=== PATIENT | male | born 1935 | race Caucasian/White ===

== ENCOUNTER 2018-07-27 20:40 | Inpatient (IN) | payer MEDICARE ==
[~2018-07-27] VITALS: Ht 175.3 cm; Wt 147.9 kg
[~2018-07-27 20:40] MED LIST: (None)250 MG OR; ALLOPURINOL100 MG OR; COUMADIN1 MG PO; COUMADIN4 MG OR; COUMADIN4 MG PO; DIAMOX500 MG OR; DIGOXIN0.25 MG OR; FLAGYL500 MG OR; FLAGYL500 MG PO; GLIPIZIDE ER2.5 MG OR; GLIPIZIDE XL2.5 MG OR; KLOR-CON M2020 MEQ PO; LANOXIN0.25 MG OR; LASIX 80 MG TAB80 MG OR; LEVOTHYROXIN25 MCG PO; LISINOPRIL2.5 MG PO; LISINOPRIL20 MG OR; LOPRESSOR50 MG OR; LORTAB 5/3255 MG PO; METFORMIN1000 MG OR; METOPROL TAR25 MG PO; POTASSIUM25 MEQ OR; PROTONIX40 MG PO; SYNTHROID50 MCG OR; WARFARIN4 MG OR; WARFARIN6 MG OR
[2018-07-27 21:20] LABS: HEMOGLOBIN 15.8 g/dl (14.0-18.0); IMMATURE GRANULOCYTES 0.3 % (0.0-5.0); MEAN CORPUSCULAR HGB 30.2 pG CALC (26.0-32.0); MEAN CORPUSCULAR HGB CONC 30.7 g/L CALC (32.0-36.0); NEUT# 4.52 thou/uL (1.82-7.42); RED BLOOD COUNT 5.24 mill/uL (4.70-6.10); RED CELL DISTRI WIDTH 17.2 % (11.5-15.5)
[2018-07-27] MEDS ORDERED: LEVOTHYROXIN25 MC1 PO (21:26)
[2018-07-27 21:27] LABS: HEMATOCRIT 51.5 % (39.0-50.0); MEAN CELL VOLUME 98.3 fL CALC (80.0-100.0)
[2018-07-27 21:39] LABS: ALBUMIN 3.7 g/dL (3.2-5.0); ALKALINE PHOSPHATASE 90 u/l (38-126); ANION GAP 14 (6-22 (CALC)); BILIRUBIN, TOTAL 0.7 mg/dL (0.0-1.4); BUN 22 mg/dL (8-23); BUN/CREATININE RATIO 21 (12-20 (CALC)); CARBON DIOXIDE 33 mmol/l (22-30); CHLORIDE 98 mmol/l (95-108); GFR > 60 ML/MIN (>=60 (CALC)); GFR FOR AFR.AMER. > 60 ML/MIN (>=60 (CALC)); POTASSIUM 4.3 mmol/l (3.5-5.1); SGOT/AST 23 u/l (19-48); SODIUM 140 mmol/l (137-146); TOTAL PROTEIN 6.7 g/dL (6.3-8.2)
[2018-07-27 22:32] LABS: URINE BILIRUBIN - DIPSTICK NEGATIVE (NEGATIVE); URINE BLOOD DIPSTICK NEGATIVE (NEGATIVE); URINE COLOR YELLOW; URINE GLUCOSE - DIPSTICK NEGATIVE (NEGATIVE); URINE KETONE NEGATIVE (NEGATIVE); URINE LEUK ESTERASE NEGATIVE (NEGATIVE); URINE NITRITE - DIPSTICK NEGATIVE (Negative); URINE PH 5.5 (4.5-8.0); URINE PROTEIN - DIPSTICK TRACE mg/dL (NEG-TRACE); URINE SPECIFIC GRAVITY 1.025; URINE UROBILINOGEN - DIPSTICK 0.2 E.U./dL (0.2)
[2018-07-27 22:41] LABS: URINE CLARITY CLEAR
[2018-07-28 00:10] VITALS: BP 138/94
[2018-07-28 04:00] VITALS: BP 126/79
[2018-07-28 08:05] VITALS: BP 149/98
[2018-07-28 15:54] VITALS: BP 113/67
[2018-07-28 19:00] VITALS: BP 111/67
[2018-07-29 04:00] VITALS: BP 121/78
[2018-07-29 06:06] LABS: ANION GAP 11 (6-22 (CALC)); BUN 21 mg/dL (8-23); BUN/CREATININE RATIO 21 (12-20 (CALC)); CARBON DIOXIDE 37 mmol/l (22-30); CHLORIDE 96 mmol/l (95-108); GFR > 60 ML/MIN (>=60 (CALC)); GFR FOR AFR.AMER. > 60 ML/MIN (>=60 (CALC)); HEMATOCRIT 50.5 % (39.0-50.0); HEMOGLOBIN 15.2 g/dl (14.0-18.0); MEAN CORPUSCULAR HGB 30.1 pG CALC (26.0-32.0); MEAN CORPUSCULAR HGB CONC 30.1 g/L CALC (32.0-36.0); POTASSIUM 3.8 mmol/l (3.5-5.1); RED BLOOD COUNT 5.05 mill/uL (4.70-6.10); RED CELL DISTRI WIDTH 17.2 % (11.5-15.5); SODIUM 141 mmol/l (137-146)
[2018-07-29 07:27] VITALS: BP 128/86
[2018-07-29 16:00] VITALS: BP 124/84
[2018-07-29 19:00] VITALS: BP 115/69
[2018-07-30 04:25] VITALS: BP 121/74
[2018-07-30 05:47] LABS: HEMATOCRIT 51.5 % (39.0-50.0); HEMOGLOBIN 15.5 g/dl (14.0-18.0); MEAN CELL VOLUME 100.4 fL CALC (80.0-100.0); MEAN CORPUSCULAR HGB 30.2 pG CALC (26.0-32.0); MEAN CORPUSCULAR HGB CONC 30.1 g/L CALC (32.0-36.0); RED BLOOD COUNT 5.13 mill/uL (4.70-6.10); RED CELL DISTRI WIDTH 16.9 % (11.5-15.5)
[2018-07-30 06:17] LABS: ANION GAP 12 (6-22 (CALC)); BUN 19 mg/dL (8-23); BUN/CREATININE RATIO 20 (12-20 (CALC)); CHLORIDE 93 mmol/l (95-108); GFR > 60 ML/MIN (>=60 (CALC)); GFR FOR AFR.AMER. > 60 ML/MIN (>=60 (CALC)); MAGNESIUM 1.7 mg/dL (1.6-2.3); POTASSIUM 3.6 mmol/l (3.5-5.1); SODIUM 141 mmol/l (137-146)
[2018-07-30 06:19] LABS: CARBON DIOXIDE 40 mmol/l (22-30)
[2018-07-30 08:38] VITALS: BP 116/69
[2018-07-30 15:48] VITALS: BP 110/41
[2018-07-30 19:56] VITALS: BP 118/51
[2018-07-31] VITALS: BP 114/72
[2018-07-31 04:57] VITALS: BP 127/68
[2018-07-31 05:30] LABS: HEMATOCRIT 47.8 % (39.0-50.0); HEMOGLOBIN 14.6 g/dl (14.0-18.0); IMMATURE GRANULOCYTES 0.4 % (0.0-5.0); MEAN CELL VOLUME 98.6 fL CALC (80.0-100.0); MEAN CORPUSCULAR HGB 30.1 pG CALC (26.0-32.0); MEAN CORPUSCULAR HGB CONC 30.5 g/L CALC (32.0-36.0); NEUT# 5.56 thou/uL (1.82-7.42); RED BLOOD COUNT 4.85 mill/uL (4.70-6.10); RED CELL DISTRI WIDTH 16.4 % (11.5-15.5)
[2018-07-31 05:42] LABS: ALBUMIN 3.3 g/dL (3.2-5.0); ALKALINE PHOSPHATASE 68 u/l (38-126); ANION GAP 13 (6-22 (CALC)); BILIRUBIN, TOTAL 1.1 mg/dL (0.0-1.4); BUN 17 mg/dL (8-23); BUN/CREATININE RATIO 19 (12-20 (CALC)); CARBON DIOXIDE 39 mmol/l (22-30); CHLORIDE 92 mmol/l (95-108); CREATININE 0.9 mg/dL (0.7-1.3); GFR > 60 ML/MIN (>=60 (CALC)); GFR FOR AFR.AMER. > 60 ML/MIN (>=60 (CALC)); MAGNESIUM 1.6 mg/dL (1.6-2.3); POTASSIUM 3.2 mmol/l (3.5-5.1); SGOT/AST 23 u/l (19-48); SODIUM 141 mmol/l (137-146)
[2018-07-31 08:16] VITALS: BP 128/60
[2018-07-31 15:05] VITALS: BP 125/52
[2018-07-31 19:25] VITALS: BP 130/61
[2018-08-01 04:00] VITALS: BP 121/77
[2018-08-01 05:45] LABS: HEMOGLOBIN 14.5 g/dl (14.0-18.0); IMMATURE GRANULOCYTES 0.3 % (0.0-5.0); MEAN CELL VOLUME 98.8 fL CALC (80.0-100.0); MEAN CORPUSCULAR HGB 29.8 pG CALC (26.0-32.0); MEAN CORPUSCULAR HGB CONC 30.2 g/L CALC (32.0-36.0); NEUT# 4.79 thou/uL (1.82-7.42); RED BLOOD COUNT 4.86 mill/uL (4.70-6.10); RED CELL DISTRI WIDTH 16.1 % (11.5-15.5)
[2018-08-01 05:57] LABS: ALBUMIN 3.2 g/dL (3.2-5.0); ALKALINE PHOSPHATASE 60 u/l (38-126); BILIRUBIN, TOTAL 1.1 mg/dL (0.0-1.4); BUN 18 mg/dL (8-23); BUN/CREATININE RATIO 21 (12-20 (CALC)); CHLORIDE 90 mmol/l (95-108); CREATININE 0.9 mg/dL (0.7-1.3); GFR > 60 ML/MIN (>=60 (CALC)); GFR FOR AFR.AMER. > 60 ML/MIN (>=60 (CALC)); MAGNESIUM 1.5 mg/dL (1.6-2.3); POTASSIUM 2.9 mmol/l (3.5-5.1); SGOT/AST 25 u/l (19-48); SODIUM 141 mmol/l (137-146)
[2018-08-01 06:04] LABS: ANION GAP 12 (6-22 (CALC))
[2018-08-01 06:19] LABS: CARBON DIOXIDE 42 mmol/l (22-30)
[2018-08-01 09:25] VITALS: BP 123/52
[2018-08-01 15:43] VITALS: BP 132/75
[2018-08-01 19:15] VITALS: BP 120/72
[2018-08-02] VITALS (13 sets, daily range): BP systolic 108–153; BP diastolic 58–79
[2018-08-02 05:35] LABS: HEMATOCRIT 47.8 % (39.0-50.0); HEMOGLOBIN 14.5 g/dl (14.0-18.0); IMMATURE GRANULOCYTES 0.2 % (0.0-5.0); MEAN CELL VOLUME 99.2 fL CALC (80.0-100.0); MEAN CORPUSCULAR HGB 30.1 pG CALC (26.0-32.0); MEAN CORPUSCULAR HGB CONC 30.3 g/L CALC (32.0-36.0); NEUT# 4.63 thou/uL (1.82-7.42); RED BLOOD COUNT 4.82 mill/uL (4.70-6.10); RED CELL DISTRI WIDTH 15.9 % (11.5-15.5)
[2018-08-02 05:54] LABS: ALBUMIN 3.1 g/dL (3.2-5.0); ALKALINE PHOSPHATASE 55 u/l (38-126); BUN 18 mg/dL (8-23); BUN/CREATININE RATIO 21 (12-20 (CALC)); CHLORIDE 90 mmol/l (95-108); CREATININE 0.9 mg/dL (0.7-1.3); GFR > 60 ML/MIN (>=60 (CALC)); GFR FOR AFR.AMER. > 60 ML/MIN (>=60 (CALC)); MAGNESIUM 1.6 mg/dL (1.6-2.3); SGOT/AST 29 u/l (19-48); SODIUM 142 mmol/l (137-146); TOTAL PROTEIN 5.9 g/dL (6.3-8.2)
[2018-08-02 06:01] LABS: ANION GAP 13 (6-22 (CALC))
[2018-08-02 06:08] LABS: CARBON DIOXIDE 42 mmol/l (22-30)
[2018-08-02] MEDS ORDERED: GLIPIZIDE XL2.5 MG OR (14:59)
[2018-08-02] MEDS ORDERED: BUMETANIDE2 MG PO (15:00)
[2018-08-02 23:43] LABS: BUN 16 mg/dL (8-23); BUN/CREATININE RATIO 18 (12-20 (CALC)); CHLORIDE 86 mmol/l (95-108); CREATININE 0.9 mg/dL (0.7-1.3); GFR > 60 ML/MIN (>=60 (CALC)); GFR FOR AFR.AMER. > 60 ML/MIN (>=60 (CALC)); MAGNESIUM 1.6 mg/dL (1.6-2.3); SODIUM 140 mmol/l (137-146)
[2018-08-02 23:50] LABS: ANION GAP 13 (6-22 (CALC))
[2018-08-02 23:52] LABS: CARBON DIOXIDE 44 mmol/l (22-30)
[2018-08-03] VITALS (9 sets, daily range): BP systolic 111–131; BP diastolic 55–75
[2018-08-03 03:35] LABS: HEMATOCRIT 48.8 % (39.0-50.0); IMMATURE GRANULOCYTES 0.9 % (0.0-5.0); MEAN CELL VOLUME 97.4 fL CALC (80.0-100.0); MEAN CORPUSCULAR HGB 29.9 pG CALC (26.0-32.0); MEAN CORPUSCULAR HGB CONC 30.7 g/L CALC (32.0-36.0); NEUT# 4.56 thou/uL (1.82-7.42); RED BLOOD COUNT 5.01 mill/uL (4.70-6.10); RED CELL DISTRI WIDTH 15.8 % (11.5-15.5)
[2018-08-03 03:54] LABS: ALBUMIN 3.3 g/dL (3.2-5.0); ALKALINE PHOSPHATASE 55 u/l (38-126); BILIRUBIN, TOTAL 1.3 mg/dL (0.0-1.4); BUN 16 mg/dL (8-23); BUN/CREATININE RATIO 19 (12-20 (CALC)); CHLORIDE 87 mmol/l (95-108); CREATININE 0.9 mg/dL (0.7-1.3); GFR > 60 ML/MIN (>=60 (CALC)); GFR FOR AFR.AMER. > 60 ML/MIN (>=60 (CALC)); MAGNESIUM 1.6 mg/dL (1.6-2.3); SGOT/AST 37 u/l (19-48); SODIUM 141 mmol/l (137-146); TOTAL PROTEIN 6.2 g/dL (6.3-8.2)
[2018-08-03 04:00] LABS: ANION GAP 13 (6-22 (CALC))
[2018-08-03 04:06] LABS: CARBON DIOXIDE 44 mmol/l (22-30)
== END 2018-08-03 11:45 | DRG 291 ==
LOC: ED 20:40 → ED-I 23:00 → ED 23:35 → MS2 23:36 → ICU 23:36
PROVIDERS: Family Medicine; Internal Medicine Nephrology; ADMIT Internal Medicine; ATTEND Internal Medicine
PROC: 5A09357 Assistance with Respiratory Ventilation, Less than 24 Consecutive Hours, Continuous Positive Airway Pressure (ICD-10-PCS; principal; 2018-08-02)
PROC: 0T9B70Z Drainage of Bladder with Drainage Device, Via Natural or Artificial Opening (ICD-10-PCS; 2018-08-02)
DX: I11.0 Hypertensive heart disease with heart failure (principal); J96.02 Acute respiratory failure with hypercapnia; J96.01 Acute respiratory failure with hypoxia; K57.20 Diverticulitis of large intestine with perforation and abscess without bleeding; R18.8 Other ascites; I50.33 Acute on chronic diastolic (congestive) heart failure; R33.9 Retention of urine, unspecified; F41.9 Anxiety disorder, unspecified; E11.9 Type 2 diabetes mellitus without complications; I48.91 Unspecified atrial fibrillation; E03.9 Hypothyroidism, unspecified; K80.20 Calculus of gallbladder without cholecystitis without obstruction; K75.81 Nonalcoholic steatohepatitis (NASH); K74.69 Other cirrhosis of liver; Z87.891 Personal history of nicotine dependence
CPT/HCPCS: J1650; Q9967

== ENCOUNTER 2018-08-03 13:52 | Emergency (ER) | payer MEDICARE ==
[~2018-08-03] VITALS: Ht 175.3 cm; Wt 148.2 kg
[~2018-08-03 13:52] MED LIST changes: +BUMETANIDE2 MG PO; +LEVOTHYROXIN25 MC1 PO
[2018-08-03 15:07] LABS: HEMOGLOBIN 14.9 g/dl (14.0-18.0); IMMATURE GRANULOCYTES 0.3 % (0.0-5.0); MEAN CELL VOLUME 97.6 fL CALC (80.0-100.0); MEAN CORPUSCULAR HGB 29.7 pG CALC (26.0-32.0); MEAN CORPUSCULAR HGB CONC 30.4 g/L CALC (32.0-36.0); PLATELET COUNT 115 thou/uL (130-400); RED BLOOD COUNT 5.02 mill/uL (4.70-6.10)
[2018-08-03 15:10] LABS: ALBUMIN 3.3 g/dL (3.2-5.0); ALKALINE PHOSPHATASE 54 u/l (38-126); BILIRUBIN, TOTAL 1.1 mg/dL (0.0-1.4); BUN 16 mg/dL (8-23); BUN/CREATININE RATIO 20 (12-20 (CALC)); CHLORIDE 88 mmol/l (95-108); CREATININE 0.8 mg/dL (0.7-1.3); GFR > 60 ML/MIN (>=60 (CALC)); GFR FOR AFR.AMER. > 60 ML/MIN (>=60 (CALC)); MANUAL DIFFERENTIAL YES; SGOT/AST 39 u/l (19-48); SODIUM 140 mmol/l (137-146); TOTAL PROTEIN 6.3 g/dL (6.3-8.2)
[2018-08-03 15:16] LABS: ANION GAP 13 (6-22 (CALC))
[2018-08-03 15:24] LABS: CARBON DIOXIDE 42 mmol/l (22-30)
[2018-08-03 16:41] VITALS: BP 137/69
== END 2018-08-03 16:39 | disposition short-term general hospital (02) ==
LOC: ED 13:52
DX: J96.91 Respiratory failure, unspecified with hypoxia (principal); R53.1 Weakness; I25.2 Old myocardial infarction; R50.9 Fever, unspecified; R06.02 Shortness of breath; R22.41 Localized swelling, mass and lump, right lower limb; I48.91 Unspecified atrial fibrillation
CPT/HCPCS: J1650

== ENCOUNTER 2019-09-03 11:15 | Inpatient (IN) | payer MEDICARE ==
[~2019-09-03] VITALS: Ht 274.3 cm; Wt 139.3 kg
--- NOTE | 2019-09-03 11:40 | NUR ---
PT TO ROOM FOR BEDISDE TRIAGE WITH FAMILY AT BEDSIDE
--- NOTE | 2019-09-03 11:45 | NUR ---
AFTER HELPING PT INTO BED PULSE OX 87% ON ROOM AIR. PT ONLY ABLE TO BEAR WT AND PIVOT TO ASSIST IN TRANSFER
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
--- NOTE | 2019-09-03 11:59 | NUR ---
DR. JIMENES OBTAINING PEDAL PULSES PER DOPPLER AT THIS TIME
--- NOTE | 2019-09-03 12:05 | NUR ---
PT UNABLE TO VERIFY MEDICATIONS/DOSAGES/ STATES HE IS ON A WATERPILL BUT DOESNT KNOW IT.
--- NOTE | 2019-09-03 12:06 | NUR ---
SON AT BEDSIDE.
--- NOTE | 2019-09-03 12:06 | NUR ---
PT PLACED ON BIPAP, STATES FOR NOW WILL KEEP IT ON, PT HAS REFUSED BIPAP IN THE PAST.
--- NOTE | 2019-09-03 12:09 | NUR ---
PEDAL PULSE TO LEFT FOOT WITH DOPPLER TO TOP AND POSTERIOR HEEL. ABLE TO HEAR PULSE IN RIGHT FOOT TO POSTERIOR HEEL, BUT NOT TO TOP OF FOOT. TOLU FEET/TO UPPER LEGS VERY SWOLLEN AND RED.
--- NOTE | 2019-09-03 12:11 | NUR ---
PO2 ON ABG CONSISTANT WITH MONITOR. PT PLACED ON BIPAP PER DR. JIMENES. 05/04/40% REPEAT ABG IN ONE HR
[2019-09-03 12:15] LABS: HEMATOCRIT 48.2 % (39.0-50.0); HEMOGLOBIN 14.4 g/dl (14.0-18.0); IMMATURE GRANULOCYTES 0.4 % (0.0-5.0); MEAN CELL VOLUME 98.2 fL CALC (80.0-100.0); MEAN CORPUSCULAR HGB 29.3 pG CALC (26.0-32.0); MEAN CORPUSCULAR HGB CONC 29.9 g/L CALC (32.0-36.0); NEUT# 5.92 thou/uL (1.82-7.42); RED BLOOD COUNT 4.91 mill/uL (4.70-6.10); RED CELL DISTRI WIDTH 17.5 % (11.5-15.5)
--- NOTE | 2019-09-03 12:30 | NUR ---
ULTRSOUND HERE FOR DOPPLER OF LEGS
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
[2019-09-03] MEDS ORDERED: LEVOTHYROXIN25 MC1 PO (12:45)
[2019-09-03] MEDS ORDERED: TOPROL XL25 M1 PO (12:47)
[2019-09-03] MEDS ORDERED: KLOR-CON M1010 MEQ PO (12:48)
[2019-09-03] MEDS ORDERED: LASIX 40 MG TAB40 MG PO (12:48)
[2019-09-03 13:20] LABS: ALBUMIN 3.6 g/dL (3.2-5.0); ALKALINE PHOSPHATASE 87 u/l (38-126); ANION GAP 13 (6-22 (CALC)); BILIRUBIN, TOTAL 0.7 mg/dL (0.0-1.4); BUN 22 mg/dL (8-23); BUN/CREATININE RATIO 22 (12-20 (CALC)); CARBON DIOXIDE 28 mmol/l (22-30); CHLORIDE 99 mmol/l (95-108); GFR > 60 ML/MIN (>=60 (CALC)); GFR FOR AFR.AMER. > 60 ML/MIN (>=60 (CALC)); POTASSIUM 4.1 mmol/l (3.5-5.1); SGOT/AST 37 u/l (19-48); SODIUM 136 mmol/l (137-146); TOTAL PROTEIN 7.3 g/dL (6.3-8.2)
--- NOTE | 2019-09-03 13:55 | NUR ---
PT RESTING QUIETLY ON STRETCHER, FAMILY AT BEDSIDE, PT REMAINS ON BIPAP, PT WEIGHS OVER 500 POUNDS , UNABLE TO OBTAIN CT SCAN AT THIS HOSPITAL
--- NOTE | 2019-09-03 14:15 | NUR ---
UNDER PTS ROTUND ABDOMEN, GROIN AREA UP INTO LOWER ABDOMEN VERY RED/WEEPING CLEAR FLUID, WITH ODOR. REDNESS EXTENDS INTO UPPER THIGH GROIN AREA TO BOTH SIDES.
[2019-09-03 14:29] LABS: INTERNATIONAL NORMALIZED RATIO 1.2 RATIO (0.7-1.3); PROTHROMBIN TIME 12.9 SECONDS (9.0-12.5)
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
--- NOTE | 2019-09-03 15:37 | NUR ---
2000 CC LIGHT YELLOW OUTPUT EMPTIED OUT OF ARMENDARIZ BAG
--- NOTE | 2019-09-03 15:39 | NUR ---
PT RESTING QUIETLY ON STRETCHER, FAMILY AT BEDSIDE
--- NOTE | 2019-09-03 16:00 | NUR ---
PER HOSPITAL SUPERVISORS STILL NO SITTER AVAILABLE AT THIS TIME. PT IN VIEW OF STAFF AND FAMILY IS AT BEDSIDE.
[2019-09-03 16:03] LABS: URINE BILIRUBIN - DIPSTICK NEGATIVE (NEGATIVE); URINE BLOOD DIPSTICK NEGATIVE (NEGATIVE); URINE COLOR YELLOW; URINE GLUCOSE - DIPSTICK NEGATIVE (NEGATIVE); URINE KETONE NEGATIVE (NEGATIVE); URINE LEUK ESTERASE TRACE (NEGATIVE); URINE NITRITE - DIPSTICK NEGATIVE (Negative); URINE PROTEIN - DIPSTICK TRACE mg/dL (NEG-TRACE); URINE UROBILINOGEN - DIPSTICK 0.2 E.U./dL (0.2)
--- NOTE | 2019-09-03 16:07 | NUR ---
NO SITTER IS HERE FOR FIGUEREDO ACT, CHARGE NURSE NOTIFIED
--- NOTE | 2019-09-03 16:10 | NUR ---
PT STATES NEEDS TO HAVE BM, CLEANED BED AND PLACED ON BEDPAN, BUT PT NOW STATES UNABLE TO GO.
--- NOTE | 2019-09-03 17:20 | NUR ---
WHEELED SCALE INTO ROOM, 4 PEOPLE HELPING PT GET UP TO SCALE, WEIGHT IS 349 ACTUAL PER SCALE
--- NOTE | 2019-09-03 18:00 | NUR ---
NURSING CONSULTANTS INTERN NOTIFIED OF CONTINUED NEED FOR SITTER FOR PATIENT.
--- NOTE | 2019-09-03 18:05 | NUR ---
PT TAKEN OFF OF BIPAP AND PLACED ON 02 2 4 L TO BE TAKEN TO CT SCAN. DURING CT SCAN PTS O2 REMAINED IN THE LOW 90'S, DENIES ANY SOB.
--- NOTE | 2019-09-03 19:30 | NUR ---
ARMENDARIZ TO BSD. HEPARIN INFUSING 2250 UNITS/HR (45ML/HR).
--- NOTE | 2019-09-03 19:40 | NUR ---
REMOVED TO SEE WHEERE OXYGEN FELL TO, WENT IN THE LOW 80'S, SO PLACED PT BACK ON AT 4 L
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
--- NOTE | 2019-09-03 20:16 | NUR ---
SON AT BEDSIDE. SON STATES FATHER GETS TO FEELING SORRY FOR HIMSELF AND MAKES COMMENTS THAT HE WISHES HE WERE BECAUSE MOST OF HIS FAMILY HAS , BUT THAT HE HAS NO DESIRE OR PLAN TO HARM HIMSELF
--- NOTE | 2019-09-03 20:45 | NUR ---
PT STATES FEELS MUCH BETTER THAN WHEN HE CAME IN TO ER. NO SOB ON 4 L PER NC
--- NOTE | 2019-09-03 20:48 | NUR ---
ULTRASOUND HERE FOR ARTERIAL DOPPLER PROCEDURE
--- NOTE | 2019-09-03 21:20 | NUR ---
FOOD TRAY GIVEN PER PT REQUEST.
--- NOTE | 2019-09-03 21:39 | NUR ---
APPROX [id number] OF LIGHT COLOR URINE OUTPUT TOTAL
--- NOTE | 2019-09-03 22:10 | NUR ---
RECEIVED REPORT FROM YANA.
--- NOTE | 2019-09-03 22:12 | NUR ---
DISCUSSING OPTIONS WITH PATIENT
--- NOTE | 2019-09-03 22:33 | NUR ---
report called to LESLIE Edwards
--- NOTE | 2019-09-03 22:45 | NUR ---
TO ICU VIA STRETCHER
--- NOTE | 2019-09-03 22:45 | NUR ---
BEDROOM SLIPPERS ONLY ITEMS THAT WENT TO ICU WITH PT
--- NOTE | 2019-09-03 22:45 | NUR ---
83 yr old very obese male admitted icu6 per stretcher from er. transferred x5 to bed. bed weight obtained. pt aware of frederick act. o2 cont per nc. property assessment monitor shows a fib freq pvcs. #20 lac saline lock. rt groin tlc in place. heparin infusing @ 2250u/h. galicia cath in place. urine bloody. lower abd, abd folds ble red. lt jarquin has scabbed area. 4+ edema ble. see photos. history obtained per pt & er record. fall precautions initiated. sitter @ bedside.
[2019-09-03 23:00] VITALS: BP 99/69
[2019-09-03 23:15] VITALS: BP 93/56
[2019-09-03 23:30] VITALS: BP 106/80
[2019-09-03 23:45] VITALS: BP 76/44
[2019-09-04] VITALS (22 sets, daily range): BP systolic 96–124; BP diastolic 55–97
--- NOTE | 2019-09-04 00:05 | NUR ---
blood drawn & sent to lab.
--- NOTE | 2019-09-04 02:00 | NUR ---
talks out in sleep. no acute distress. monitoring and evaluation advisor shows a fib freq pvcs hr 94.
--- NOTE | 2019-09-04 03:30 | NUR ---
pt removed dsg to rt groin site. dsg replaced.
--- NOTE | 2019-09-04 05:40 | NUR ---
report received from Ashok Jama LPN; pt resting in bed with eyes closed; no distress noted; sitter present at bedside
--- NOTE | 2019-09-04 06:50 | NUR ---
report given to Cady Rendon RN
--- NOTE | 2019-09-04 08:21 | NUR ---
DR RUIZ @BEDSIDE.
--- NOTE | 2019-09-04 09:55 | NUR ---
PT REQUESTED PAIN MEDS FOR ARTHRITIS IN HANDS. RBVOT FAXED TO PHARMACY.
--- NOTE | 2019-09-04 10:16 | NUR ---
BETO, CARDIOLOGY DIRECTOR OF ACADEMIC SUPPORT, @BEDSIDE.
--- NOTE | 2019-09-04 10:57 | NUR ---
PT WOKEN UP TO TAKE PO PAIN MED.
--- NOTE | 2019-09-04 11:54 | NUR ---
BIPAP REMOVED FOR LUNCH. PLACED ON 4L NC. PT REFUSED LUNCH TRAY STATING HE ONLY WANTED JELLO OR ICE CREAM. PT GIVEN JELLO.
--- NOTE | 2019-09-04 15:19 | NUR ---
NO CHANGE TO HEPARIN DRIP WITH PTT OF 81.2. WILL RETEST IN 6 HRS FOR 2ND CONSECUTIVE THERAUEUTIC PTTs
--- NOTE | 2019-09-04 15:50 | NUR ---
WHITNEY SEAY, @BEDSIDE WITH PT/SON
--- NOTE | 2019-09-04 16:22 | NUR ---
PER DR RUIZ, DO NOT GIVE NITRO DRIP.
--- NOTE | 2019-09-04 17:39 | NUR ---
DR RUIZ @BEDSIDE. MD AWARE OF VTACH RUNS. WILL REVERSE FIGUEREDO ACT PER VO. CM GONE FOR THE DAY. HOUSE SUP AWARE.
--- NOTE | 2019-09-04 17:48 | NUR ---
PT FREQUENTLY REMINDED TO KEEP NC ON.
--- NOTE | 2019-09-04 19:33 | NUR ---
REPORT RECEIVED FROM EDVIN RODRIGUEZ. PT RESTING IN BED SEMI FOWLERS WITH EYES CLOSED AND LIGHTLY SNORING WITH NO SIGNS OF DISTRESS. RESPIRATIONS EVEN AND UNLABORED WITH OXYGEN 4L VIA NC IN PLACE. AWAKENS TO VERBAL STIMULI. ORIENTED X 3. DENIES PAIN. HEPARIN DRIP INFUSING AT 2000 UNITS/HR INTO TRIPLE LUMEN TO RIGTH GROIN; DRESSING CDI. PERIPHERAL IV SITE TO LAC. ARMENDARIZ DRAINING CLEAR YELLOW URINE IN ADEQUATE AMOUNTS. LUNGS ARE COURSE; HR IRREGULAR; AFIB ON CARIDAC MONITOR. MORBID OBESITY WITH DISTNEDED ABDOMEN; REDNESS NOTED UNDER APRON; PT DENIES DX OF DM THAT IS LISTED ON HIS HX. REDNESS, WARMTH, AND 4+ PITTING EDEMA TO BLE AND FEET; UNABLE TO PALPATE PEDAL PULSES; AUSCULTATED FAINTLY WITH DOPPLER AND PULSE LOCATION MARKED; CAP REFILL <3 SECONDS. PLAN OF CARE REVIEWED; PT ENCOURAGED TO VERBALIZE CONCERNS. STATES UNDERSTANDING. SAFETY MEASURES IN PLACE. CALL LIGHT WITHIN REACH.
--- NOTE | 2019-09-04 20:45 | NUR ---
LEVOPHED TITRATED UP TO 11 MCG/MIN FOR BP 82/61 WITH F/U BP OF 102/70. DR. RUIZ AWARE OF BP.
--- NOTE | 2019-09-04 21:13 | NUR ---
LAB AT BEDSIDE FOR PTT.
--- NOTE | 2019-09-04 21:48 | NUR ---
PTT RESULT OF 65.7; WILL CONTINUE HEPARIN GTT AT 2000 U/HR AND REPEAT PTT IN AM PER PROTOCOL. TRAMADOL GIVEN WITH HS MEDICATIONS FOR LOWER BACK PAIN; ASSISTED PT WITH REPOSITIONING.
[2019-09-05] VITALS (20 sets, daily range): BP systolic 89–122; BP diastolic 54–77
--- NOTE | 2019-09-05 | NUR ---
PT AWAKE AND ASKING FOR HELP TO GET OF OUT OF BED FOR BREAKFAST; REORIENTED TO TIME AND PT WENT BACK TO SLEEP AFTER HELP WITH REPOSITIONING. NO OTHER REQUESTS OR CONCERNS.
--- NOTE | 2019-09-05 02:37 | NUR ---
PT ASLEEP WITH NO SIGNS OF DISTRESS. RESPIRATIONS EVEN AND UNLABORED ON OXYGEN 4L. HEPARIN CONTINUES TO INFUSE WITHOUT DIFFICULTY. ARMENDARIZ DRAINING CLEAR YELLOW IN LARGE AMOUNTS AFTER SCHEDULED LASIX. SAFETY MEASURES IN PLACE INCLUDING BED ALARM. CALL LIGHT WITHIN REACH.
--- NOTE | 2019-09-05 04:45 | NUR ---
COMPLETE BATH GIVEN WITH LINEN CHANGE. LABS DRAWN FROM CENTRAL LINE AND FLUSHED PER PROTOCOL.
--- NOTE | 2019-09-05 05:00 | NUR ---
PT DROWSY DURING BED BATH; STATES THAT HE JUST FEELS TIRED; SKIN IS PALE AND COOL; TEMPORAL TEMPERATURE 95.9; ACCU CHECK 95; WARM BLANKET APPLIED. WILL REASSESS.
[2019-09-05 05:40] LABS: HEMATOCRIT 46.8 % (39.0-50.0); HEMOGLOBIN 13.7 g/dl (14.0-18.0); MEAN CELL VOLUME 99.6 fL CALC (80.0-100.0); MEAN CORPUSCULAR HGB 29.1 pG CALC (26.0-32.0); MEAN CORPUSCULAR HGB CONC 29.3 g/L CALC (32.0-36.0); RED BLOOD COUNT 4.7 mill/uL (4.70-6.10); RED CELL DISTRI WIDTH 17.2 % (11.5-15.5)
--- NOTE | 2019-09-05 06:00 | NUR ---
F/U TEMP 96.9. VSS.
--- NOTE | 2019-09-05 06:33 | NUR ---
PTT RESULT OF 77.0; WILL CONTINUE HEPARIN DRIP AT 2000 UNITS/HR AND SCHEDULE NEXT PTT FOR TOMORROW MORNING.
[2019-09-05 07:29] LABS: ALBUMIN 3.3 g/dL (3.2-5.0); ALKALINE PHOSPHATASE 84 u/l (38-126); ANION GAP 11 (6-22 (CALC)); BILIRUBIN, TOTAL 0.7 mg/dL (0.0-1.4); BUN 23 mg/dL (8-23); BUN/CREATININE RATIO 22 (12-20 (CALC)); CARBON DIOXIDE 33 mmol/l (22-30); CHLORIDE 99 mmol/l (95-108); GFR > 60 ML/MIN (>=60 (CALC)); GFR FOR AFR.AMER. > 60 ML/MIN (>=60 (CALC)); POTASSIUM 4.2 mmol/l (3.5-5.1); SGOT/AST 22 u/l (19-48); SODIUM 139 mmol/l (137-146); TOTAL PROTEIN 6.5 g/dL (6.3-8.2)
--- NOTE | 2019-09-05 12:44 | NUR ---
DR RUIZ NOTIFIED OF O2 SAT OF 84% ON 6L HIGHFLOW NC. RBVO FOR BIPAP.
--- NOTE | 2019-09-05 12:54 | NUR ---
AVNI CORNEJO, @BEDSIDE STARTING BIPAP.
--- NOTE | 2019-09-05 13:20 | NUR ---
PT BREATHING UNLABORED, SAT 98% ON BIPAP
--- NOTE | 2019-09-05 13:45 | NUR ---
INCREASED IPAP TO [address] RUIZ NOTIFIED OF ABG RESULTS AND CHANGES MADE TO BIPAP.
--- NOTE | 2019-09-05 15:00 | NUR ---
BIPAP ALARMING, RT CALLED TO ROOM.
--- NOTE | 2019-09-05 15:29 | NUR ---
PT RESTING IN BED, ON BIPAP, VSS, CALLBELL ON ABD, WILL CONTINUE TO MONITOR.
--- NOTE | 2019-09-05 18:30 | NUR ---
HYGIENE PROVIDED AND PT REPOSITIONED AFTER DINNER.
--- NOTE | 2019-09-05 19:00 | NUR ---
BEDSIDE REPORT RECEIVED FROM EDVIN RODRIGUEZ. PT RESTING IN BED SEMI FOWLERS WITH BIPAP ON AT 35% FIO2; EYES CLOSED AND NO SIGNS OF DISTRESS. RESPIRATIONS EVEN AND UNLABORED. PT AWAKENS TO VERBAL STIMULI. DENIES PAIN. SAFETY MEASURES IN PLACE. CALL LIGHT WITHIN REACH. NEEDS ANTICIIPATED BY STAFF.
--- NOTE | 2019-09-05 21:00 | NUR ---
PT REFUSED TO TAKE ANY PO MEDICATIONS; STATES, "THAT WILL KILL ME." ATTEMPED TO EXPLAIN THE PURPORSE OF HIS METOPROLOL AND ITS POSITIVE EFFECTS, BUT PT CONTINUES TO REFUSE STATING THAT SOMEONE HE KNEW SAID THAT THE MEDICATION WOULD KILL HIM; UNABLE TO CHANGE PT'S MIND. ASSISTED WITH REPOSITIONED AND PT HAD FACIAL GRIMACING. WHEN PT ASKED IF HE WOULD LIKE SOMETHING FOR PAIN HE DECLINES STATING, "NO THAT WILL KILL ME. IM NOT TAKING ANYTHING." PT DID RECEIVE HIS IV LASIX. BIPAP REPLACED AND PT NOW RESTING AGAIN WITH EYES CLOSED.
--- NOTE | 2019-09-05 23:00 | NUR ---
PT ASLEEP WITH NO SIGNS OF DISTRESS; BIPAP REMAINS INTACT AT 35% FIO2; 92% FIO2. VSS. ARMENDARIZ DRAINING CLEAR YELLOW URINE IN ADEQUATE AMOUNTS. PT ORIENTED ONLY TO SELF WHILE AWAKE. WILL CONTINUE TO MONITOR.
[2019-09-06] VITALS (23 sets, daily range): BP systolic 93–134; BP diastolic 52–77
--- NOTE | 2019-09-06 00:45 | NUR ---
PT CALLED NURSE TO REQUEST TRAMADOL FOR RLE PAIN. PT ASKED ABOUT HIS STATEMENT EARLIER THAT HE BELIVED THE PAIN MEDICATION WOULD KILL HIM AND REPLYS, "I WAS WRONG." WHEN ASKED IF HE WOULD ALSO TAKE HIS METROPROLOL HE REPLYS, "NO I WON'T TAKE THAT." BIPAP REMOVED FOR MEDICATION. PT ASKED IF HE COULD KEEP BIPAP OFF TO WATCH TV; NOW RESTING WITH 02 ON 4L VIA NC. ALERT AND ORIENTED X 2 AT THIS TIME. VSS.
--- NOTE | 2019-09-06 03:39 | NUR ---
PT ASLEEP WITH OXYGEN VIA NC IN PLACE; 89% SPO2. VSS. 3 PERSON ASSIST TO PULL UP IN BED AND REPOSITION.
--- NOTE | 2019-09-06 04:45 | NUR ---
RT AT BEDSIDE TO REAPPLY BIPAP. LABS DRAWN FROM TRIPLE LUMEN AND FLUSHED PER PROTOCOL. 1000ML OF CLEAR YELLOW URINE EMPTIED FROM ARMENDARIZ CATHETER. PT ALERT AND AGREEABLE. REMAINS AFIB ON CEMENT BASED MATERIALS PUMP TENDER WITH HEART RATE IN THE 80S AND 90S.
[2019-09-06 05:39] LABS: HEMATOCRIT 46.7 % (39.0-50.0); HEMOGLOBIN 13.9 g/dl (14.0-18.0); MEAN CELL VOLUME 98.5 fL CALC (80.0-100.0); MEAN CORPUSCULAR HGB 29.3 pG CALC (26.0-32.0); MEAN CORPUSCULAR HGB CONC 29.8 g/L CALC (32.0-36.0); RED BLOOD COUNT 4.74 mill/uL (4.70-6.10); RED CELL DISTRI WIDTH 16.9 % (11.5-15.5)
[2019-09-06 06:10] LABS: BUN 24 mg/dL (8-23); BUN/CREATININE RATIO 23 (12-20 (CALC)); CHLORIDE 92 mmol/l (95-108); CREATININE 1.1 mg/dL (0.7-1.3); GFR > 60 ML/MIN (>=60 (CALC)); GFR FOR AFR.AMER. > 60 ML/MIN (>=60 (CALC)); MAGNESIUM 1.8 mg/dL (1.6-2.3); POTASSIUM 3.4 mmol/l (3.5-5.1); SODIUM 139 mmol/l (137-146)
[2019-09-06 06:17] LABS: ANION GAP 12 (6-22 (CALC)); CARBON DIOXIDE 38 mmol/l (22-30)
--- NOTE | 2019-09-06 06:25 | NUR ---
PT AGREED TO TAKE AM MEDICATION; AFTER BIPAP REMOVED AND MEDICATION TAKEN PT STATES THAT WE HAVE THE WRONG PERSON AND REPEATS HIS NAME AND A FEW TIMES. DOES NOT REMEMBER BEING SEEN BY THE DR AND ASKS WHAT HE IS HERE FOR; AFTER ATTEMPT AT REORIENTATION PT DENIES HIS MEDICAL CONDITION AND REPEATS THAT WE HAVE THE WRONG PERSON. NEURO ASSESSMENT WNL FOR PT. PT DECLINES BIPAP AT THIS TIME. WILL CONTINUE TO MONITOR.
--- NOTE | 2019-09-06 09:42 | NUR ---
GEENA @BEDSIDE DISCUSSING PLACEMENT AFTER DC WITH PT & DAUGHTER.
--- NOTE | 2019-09-06 10:25 | NUR ---
PT MOVED TEMPORARILY SO LIGHT IN ROOM COULD BE REPAIRED.
--- NOTE | 2019-09-06 11:29 | NUR ---
PTS O2 SATS IN 70-80%. REFUSING BIPAP AT THIS TIME. PT SITTING UP IN BED, EATING LUNCH.
--- NOTE | 2019-09-06 12:57 | NUR ---
pt refusing bipap. but wearing it at this time. have already pulled the hose off. jessica & kojo @bedside trying to convince pt to wear the bipap. will continue to monitor.
--- NOTE | 2019-09-06 14:06 | NUR ---
DR RUIZ @BEDSIDE WITH PT.
--- NOTE | 2019-09-06 14:39 | NUR ---
BED BATH COMPLETED WITH POWDER & BARRIER CREAM & ARMENDARIZ CARE. PT REMAINS ON BIPAP, ALTERNATES FROM WATCHING TV TO SLEEPING. PT DEMEANER IS CALMER THAN PREVIOUS INTERACTIONS TODAY. CHANGED LINENS, PT REFUSING GOWN. CALLBELL ON ABD. BREATHING EVEN/UNLABORED. WILL CONTINUE TO MONITOR.
--- NOTE | 2019-09-06 16:03 | NUR ---
PT APOLOGIZED FOR HIS BEHAVIOR EARLIER.
--- NOTE | 2019-09-06 16:14 | NUR ---
PT REMOVED BIPAP, STATING HE CANT WEAR IT ANYMORE. REPLACED ON 4L NC.
--- NOTE | 2019-09-06 16:40 | NUR ---
REPORT RECEIVED FROM EDVIN RODRIGUEZ. PT SITTING UP IN BED WATCHING TV; OXYGEN ON FOREHEAD AND SPO2 77% ON ROOM AIR. O2 VIA NC PLACED BACK IN NARES AND PT INSTRUCTED ON BREATHING TECHNIUQES; NOW 91% ON 4L. RESPIRATIONS SHALLOW, EVEN, AND UNLABORED; LUNGS CLEAR WITH DIMINSHED BASES AND SOME RHONCHI TO LEFT UPPER LOBE. ALERT AND ORIENTED X 3. DENIES PAIN. LEGS REMAIN EDEMETOUS WITH 3+ EDEMA; REDNESS AND WARMTH WITH SCAB TO LEFT HERNANDEZ; DOPPLER NEEDED TO AUSCULTATE PEDAL PULSES; HEEL PROTECTORS IN PLACE TO BILATERAL FEET. PLAN OF CARE REVIEWED. PT ENCOURGAED TO VERBALIZE CONCERNS. HAS SOME CONCERNS ABOUT PLANS AFTER DISCHARGE; STATES HE WANTS TO GO HOME TO LIVE WITH HIS SON AND DAUGHTER; DISCUSSED NEED FOR PHYSICAL THERAPY AND POTENTIAL REHAB PENDING CASE MANAGEMENT CONSULT. SAFETY MEASURES IN PLACE. CALL LIGHT WITHIN REACH.
--- NOTE | 2019-09-06 20:30 | NUR ---
SON RETURNED PHONE CALL; UPDATED ON DELAYED DISCHARGE PLANS R/T HOLIDAY WEEKEND. QUESTIONS ANSWERED TO SATISFACTION.
--- NOTE | 2019-09-06 21:16 | NUR ---
PM MEDICATIONS ADMINISTERED. PT DECLINED REPOSITIONING AT THIS TIME. C/O MILD ANKLE PAIN, BUT DECLINES TRAMADOL. TRIPLE LUMEN CENTRAL LINE TO RIGHT GROIN FLUSHES WITH GOOD BLOOD RETURN; DRESSING CDI. PT STATES HE IS NOT READY TO GO TO BED AND DOES NOT WANT TO THE BIPAP ON YET. CALL LIGHT WITHIN REACH.
--- NOTE | 2019-09-06 21:59 | NUR ---
RT AT BEDSIDE; BIPAP NOW ON 03/02 40% FIO2.
--- NOTE | 2019-09-06 22:19 | NUR ---
PT REMOVED BIPAP AND REFUSED TO PUT BACK ON. NOW WITH NC ON AT 4L.
--- NOTE | 2019-09-06 23:55 | NUR ---
PT ASLEEP AT THIS TIME WITH NO SIGNS OF DISTRESS; SP02 91% ON 4L VIA NC. VSS. 1700 ML OF PALE YELLOW EMPTIED FROM ARMENDARIZ. PT MAKING SMALL MOVEMENTS, BUT OVERALL NEEDS ASSISTANCE WITH REPOSITIONING; EXTENSIVE 2-3 PERSON ASSIST. PT HAS REMOVED NC AND EDUCATED ON NEED FOR O2 AND REPLACED; PT COOPERATIVE WITH NC OTHERWISE. NEEDS ARE ANTICIPATED BY STAFF. CALL LIGHT WITHIN REACH.
[2019-09-07] VITALS (24 sets, daily range): BP systolic 102–124; BP diastolic 53–79
--- NOTE | 2019-09-07 03:33 | NUR ---
PT ATTEMPTING TO GET OUT OF BED; STATES THAT HE WANTS TO HOME. PT REMINDED OF TIME AND HIS GENERALIZED WEAKNESS/FALL RISK. PT STATES, "WELL IF I FALL ON THE GROUND THAT IS WHERE I WILL STAY." PT AGITATED AND YELLING. PT REASSURED AND EASILY CALMED. ALLOWED NURSE TO REPLACED BLANKETS AND PILLOW THAT HE HAD REMOVED AND THREW ON THE FLOOR. NOW SITTING IN HIGH FOWLERS WATCHING TV. VSS. REMAINS AFIB ON PSYCHIATRY ADULT PHYSICIAN WITH PVCS HEART RATE IN THE 80'S.
--- NOTE | 2019-09-07 04:01 | NUR ---
LABS DRAWN FROM TRIPLE LUMEN AND FLUSHED PER PROTOCOL.
[2019-09-07 05:47] LABS: HEMOGLOBIN 13.8 g/dl (14.0-18.0); MEAN CELL VOLUME 96.8 fL CALC (80.0-100.0); MEAN CORPUSCULAR HGB 29.1 pG CALC (26.0-32.0); RED BLOOD COUNT 4.75 mill/uL (4.70-6.10); RED CELL DISTRI WIDTH 16.4 % (11.5-15.5)
[2019-09-07 05:55] LABS: BUN 30 mg/dL (8-23); BUN/CREATININE RATIO 29 (12-20 (CALC)); CHLORIDE 86 mmol/l (95-108); GFR > 60 ML/MIN (>=60 (CALC)); GFR FOR AFR.AMER. > 60 ML/MIN (>=60 (CALC)); MAGNESIUM 1.7 mg/dL (1.6-2.3); POTASSIUM 3.3 mmol/l (3.5-5.1); SODIUM 137 mmol/l (137-146)
[2019-09-07 06:02] LABS: ANION GAP 11 (6-22 (CALC))
[2019-09-07 06:08] LABS: CARBON DIOXIDE 43 mmol/l (22-30)
--- NOTE | 2019-09-07 07:10 | NUR ---
pt resting in bed with eyes closed; no apparent distress noted; easily arousable; offers no complaints; assessment completed at this time; pt alert to person only; speech garbled; appears agitated; denies pain; no n/v noted; resp even and unlabored; lungs clear/diminished; skin color pale; o2 per nc at 4L; chief knowledge officer dry cough noted; hr irreg; doppler pedal pulses; 4+ edema noted to ble; ble noted warm with shiny erythema; afib/ pvc on monitor; abd soft/ distended with bs present; no bm noted per freelance copywriter; galicia to gravity draining clear yellow urine; cath roberts intact; TLC flushed and patent to Rt Femoral; no redness or edema noted at site; pt encouraged to reposition self/ denies ability; pt deny abilty to lift legs or arms; pt becomes agitated with this freelance copywriter when freelance copywriter attempting to assess heels; bilat heel protectors intact; redness noted to abd fold/ groin/ abd and ble; refusing repositioning at this time; will continue to monitor
--- NOTE | 2019-09-07 08:01 | NUR ---
awake in bed eating breakfast; no apparent distress noted; o2 per nc; galicia to gravity; afib/pvc on monitor; call light within reach; will continue to monitor
--- NOTE | 2019-09-07 09:15 | NUR ---
complete bed bath with linen changed; repositioned x5 staff; pt if a max assist and makes no attempts to help with repositioning; Dr Bah present at bedside to assess pt and discuss plan of care; pt alert and oriented X3 at this time; code status reviewed with pt; pt does not wish to make any decision on code status at this time afib on monitor; will continue to monitor
--- NOTE | 2019-09-07 10:00 | NUR ---
awake in bed; conversing with son at bedside; no apparent distress noted; o2 per nc; galicia to gravity; afib/pvc on monitor; call light within reach; will continue to monitor
--- NOTE | 2019-09-07 10:02 | NUR ---
RT present at bedside to educate pt on flutter valve and IS;
--- NOTE | 2019-09-07 12:04 | NUR ---
awake in bed eating lunch; no apparent distress noted; resp even and unlabored; o2 per nc; iv intact with abt infusing without complication; afib/pvc on monitor; galicia to gravity; call light within reach; will continue to monitor
--- NOTE | 2019-09-07 13:56 | NUR ---
BED ALRAM ACTIVIATED, PT FOUND SITTING UP ON SIDE OF BED STATING "CALL MY SON I'M GOING HOME" ATTEMPTS TO REORIENT MODERATELY SUCCESSFUL, PT BACK TO BED AND REPOSITIONED FOR COMFORT
--- NOTE | 2019-09-07 14:16 | NUR ---
awake in bed; offers no complaints; iv intact; afib/ pvc on monitor; galicia to gravity; o2 per nc; call light within reach; will continue to monitor
--- NOTE | 2019-09-07 16:03 | NUR ---
pt awake in bed; no complaints offered; iv flushed and patent; o2 per nc; galicia to gravity; afib on monitor; deny needs; IS and flutter valve at bedside; pt becomes upset when instructed to use; pt states "I have too many people telling me what to do"; call light within reach; will continue to monitor
--- NOTE | 2019-09-07 18:02 | NUR ---
awake in bed; offers no complaints; no apparent distress noted; iv intact; o2 per nc; galicia to gravity; afib/pvc on monitor; bed alarm activated for pt safety; call light within reach
--- NOTE | 2019-09-07 19:25 | NUR ---
PATIENT LAYS WITH HOB ABOUT 30 DEGREES. ON 4 L/MIN NC H. NO SOB NOTED. DENIES SOB AND PAIN AT THIS MOMENT, ALERT AND ORIENTED TO NAME, , AGE, AND PLACE. HEAD TO TOE NURSING ASSESSMENT PERFORMED. RIGHT FEMORAL 3 LUMEN INTACT, FLUSHES AND BROWN LUMEN RETURNS BLOOD. COMPRESSION YANN WRAPS INTACT. HEEL PROTECTORS INTACT. DOPPLER USED FOR PEDAL PULSES. SMALLS WORKPLACE TRAINER AND ASSESSOR COUGH. POC DISCUSSED FOR TONIGHT. EDUCATED ON BENEFIT OF BIPAP AND AGREES TO WEAR IT TONIGHT. AFIB WITH PVC'S ON TELEMETRY, HR RANGES IN THE 80'S. PT ABLE TO TURN UPPER TORSO WITH VERBAL CUEING. ARMENDARIZ CATHETER INTACT. CALL LIGHT WITHIN REACH.
--- NOTE | 2019-09-07 20:47 | NUR ---
PATIENT GIVEN BEDTIME MEDICATIONS, ABLE TO SWALLOW WITHOUT DIFFICULTY. BEFORE TAKING MEDIACTION, PATIENT WAS ABLE TO COUGH UP MODERATE AMOUNT OF YELLOW THICK PHLEGM ONTO TISSUE. PATIENT WAS ABLE TO PULL HIMSELF UP WITH VERBAL CUEING AND SOME ASSISTANCE X2. PATIENT WAS AGIAN EDUACTED ABOUT BIPAP AND HIS CO2 BLOOD LEVELS, AGREES TO WEAR IT, NOW ON BIPAP AT 40% FIO2. CALL LIGHT WITHIN REACH, HOB 30 DEGREES. HEEL PROTECTERS INTACT.
--- NOTE | 2019-09-07 21:00 | NUR ---
PT TOOK HIS BPAP MASK OFF AND WAS YELLING ALOUD. YELLING HE HAD WORN IT FOR A WHILE NOW, I TOLD HIM IT HAD BEEN 15 MINUTES ONLY. PATIENT AGREES TO HAVE IT PLACED BACK ON. CALL LIGHT WITHIN REACH.
--- NOTE | 2019-09-07 22:14 | NUR ---
PATIENT TAKES HIS BIPAP MASK OFF, REFUSES TO HAVE IT PLACED ABCK ON. IS YELLING ALOUD, IS AGITATED. WAS YOLD TO CALM DOWN AND NOT YELL SINCE THERE ARE OTHER PATIENT'S IN THE OTHER ROOMS THAT ARE SLEEPING, HE CONTINUED TO YELL, "YOU NEED TO GET OUT OF HERE ALL THEY WANT IS YOUR MONEY AND THEY WANNA KEEP YOU HERE." PATIENT DOES DESAT TO 80'S. NC 4L/MIN NC PLACED ON, NOW SATS 90%-91%. CALL LIGHT WITHIN REACH.
--- NOTE | 2019-09-07 23:01 | NUR ---
PATIENT PLACED BACK ON BIPAP, HE WAS CALM AND COOPERATIVE. PT GIVEN PAIN MEDICATION FOR BACK PAIN. EMPTIED ARMENDARIZ CATHETER. IS AWAKE AND HAS HIS TV ON. CALL LIGHT WITHIN REACH.
[2019-09-08] VITALS (21 sets, daily range): BP systolic 11–195; BP diastolic 53–90
--- NOTE | 2019-09-08 00:10 | NUR ---
pt yells through bipap mask. yells, "i can't get up." elevated hob, now calm, bipap remains on. call light within reach.
--- NOTE | 2019-09-08 01:10 | NUR ---
PATIENT PATIENT WAS PLACED ON BEDPAN AND TAKEN OFF. ONLY PASSING GAS AND SMEAR OF BM WAS WIPED OFF, HE ALSO TOOK HIS BIPAP MASK OFF AND REFUSES TO WEAR IT. PATIENT ABLE TO HELP TURN.
--- NOTE | 2019-09-08 03:25 | NUR ---
PATIENT LAYS WITH HOB 30 DEGREES, IS AWAKE. NO COMPLAINTS. NO ACUTE DISTRESS SHOWN. ON 4L/MIN NC. CALL LIGHT WITHIN REACH.
--- NOTE | 2019-09-08 05:00 | NUR ---
PATIENT LAYS WITH HOB 30 DEGREES, AWAKENS EASILY WITH NOISE. NO ACUTE DISTRESS SHOWN. BLOOD DRAWN FOR LAB ORDERS. CALL LIGHT WITHIN REACH.
[2019-09-08 05:42] LABS: HEMATOCRIT 45.4 % (39.0-50.0); HEMOGLOBIN 13.7 g/dl (14.0-18.0); IMMATURE GRANULOCYTES 0.3 % (0.0-5.0); MEAN CORPUSCULAR HGB CONC 30.2 g/L CALC (32.0-36.0); NEUT# 5.33 thou/uL (1.82-7.42); RED BLOOD COUNT 4.73 mill/uL (4.70-6.10)
--- NOTE | 2019-09-08 05:52 | NUR ---
PATIENT ABLE TO PULL HIMSELF UP WITH VERBAL CUEING. HOB 30 DEGREES. HEEL PROTECTORS INTACT. YANN WRAP COMPRESSIONS INTACT. ARMENDARIZ CATHETER INTACT. PATIENT ABLE TO TOLERATE SYNTHROID DUE THIS AM, REQUESTED DEIDRE LEY PROVIDED. CALL LIGHT WITHIN REACH.
[2019-09-08 05:53] LABS: ALBUMIN 3.1 g/dL (3.2-5.0); ALKALINE PHOSPHATASE 89 u/l (38-126); BUN 34 mg/dL (8-23); BUN/CREATININE RATIO 34 (12-20 (CALC)); CHLORIDE 79 mmol/l (95-108); GFR > 60 ML/MIN (>=60 (CALC)); GFR FOR AFR.AMER. > 60 ML/MIN (>=60 (CALC)); MAGNESIUM 1.8 mg/dL (1.6-2.3); POTASSIUM 3.3 mmol/l (3.5-5.1); SGOT/AST 27 u/l (19-48); SODIUM 136 mmol/l (137-146); TOTAL PROTEIN 6.4 g/dL (6.3-8.2)
[2019-09-08 06:13] LABS: ANION GAP 11 (6-22 (CALC)); CARBON DIOXIDE 49 mmol/l (22-30)
--- NOTE | 2019-09-08 06:15 | NUR ---
PATIENT HAS CRITICAL CO2 THIS MORNING, DR ZABALA WAS CALLED TO NOTIFY AND NO ANSWER.
--- NOTE | 2019-09-08 06:21 | NUR ---
DR ZABALA CALLED HERE AND NOTIFIED OF CRITICAL CO2, EXPLAINED THAT PATIENT WORE BIPAP ON AND OFF AND THAN REFUSED TO HAVE IT PLACED BACK ON. DR ZABALA WOULD LIKE US TO NOTIFY FAMILY OF PATIENT SHE WOULD LIKE TO MEET WITH THEM TODAY.
--- NOTE | 2019-09-08 06:28 | NUR ---
CALLED AND SPOKE TO MAYRA JUSTINJigna (PATIENT'S SON) TO NOTIFY DR SMART WOULD LIKE TO MEET WITH PATIENT'S FAMILY AT BEDSIDE THIS MORNING. SON WILL NOTIFY DAUGHTER WELL.
--- NOTE | 2019-09-08 07:00 | NUR ---
pt awake in bed; yelling very loudly; casualty underwriter in immed to assess pt; no apparent distress noted; pt offers no complaints; assessment completed at this time; pt alert and oriented at this time; confusion noted with stories being told; denies pain, n/v; pt yelling due wanting to leave and wanting his son here; easily reoriened/ casualty underwriter able to calm pt; resp even and unlabored; lungs clear/ diminished; skin color pale; o2 per nc at 4L; psychiatric np cough noted; hr irreg; doppler pedal pulses; 2+ edema noted to ble; afib/pvc on monitor; abd soft/ distended/ obese; with bs present; no bm noted per casualty underwriter; galicia to gravity draining clear yellow urine; TLC flushed and patent to RT Femoral; no redness or edema noted at site; redness noted to abd fold and ble; max wraps intact to ble; plan of care/ am meds explained; bed alarm activated for pt safety; will continue to monitor
--- NOTE | 2019-09-08 07:05 | NUR ---
RT Marissa responded to pt bedside due to hearing pt yelling from RT department; CO2 levels and confusion explained per RT; pt agree with RT to wear bipap; bipap placed at 16/6, FiO@ of 40%; will continue to monitor closely;
--- NOTE | 2019-09-08 07:29 | NUR ---
bipap removed per pt; pt informed bipap has only been in place for 15 min; pt agrumentative with show card writer stating it's been on longer than that; bipap reapplied; will continue to monitor
--- NOTE | 2019-09-08 07:45 | NUR ---
staff in room multiple times; pt cont remove bipap mask; reapplied; will continue to monitor
--- NOTE | 2019-09-08 07:51 | NUR ---
pt has removed bipap machine again; staff attempt to reapply; pt has broken the mask; pt states "I tried to"; o2 reapplied at 4L; RT notified; will continue to monitor
--- NOTE | 2019-09-08 08:25 | NUR ---
awake in bed eating breakfast; no apparent distress noted; pt offers no complaints; o2 per nc; iv intact; afib/pvc on monitor; galicia to gravity; bed alarm on for pt safety; call light within reach; will continue to monitor
--- NOTE | 2019-09-08 09:04 | NUR ---
son Arben called per commercial loan underwriter; family will be here at [address] Edwards
--- NOTE | 2019-09-08 09:30 | NUR ---
Dr Edwards present at bedside to assess pt and discuss plan of care; daughter Malika present at bedside; MD will await rest of family to have meeting; am meds explained and administered; will continue to monitor
--- NOTE | 2019-09-08 10:00 | NUR ---
awake in bed; family at bedside; no apparent distress noted; o2 per nc; iv intact with k-rider infusing without complication; afib/pvc on monitor; call light within reach; will continue to monitor
--- NOTE | 2019-09-08 10:25 | NUR ---
[id number]: Dr Edwards present at bedside to speak with family (daughter Malika, son Arben and another son) present at bedside; pt condition/ status explained in great detail; family and pt provided opportunity for questions/additional information; code status explained in details as well; pt compliance with nursing care/ bipap explained; orders to be placed for DNR code status
--- NOTE | 2019-09-08 11:05 | NUR ---
Dr Edwards called per bond writer for clarification on code status; pt is to be a DNR; bond writer to place order
--- NOTE | 2019-09-08 12:00 | NUR ---
awake in bed; offers no complaints; eating lunch; pt unable to assist with repositioning/ repositioned per staff; galicia to gravity; iv intact and patent; no redness or edema noted at site; afib/pvc on monitor; pt deny needs; o2 sat noted at 88%; pt with o2 tubing on top of head; o2 compliance explained and reapplied; o2 sat immed up to low 90s; call light within reach; will continue to monitor
--- NOTE | 2019-09-08 14:05 | NUR ---
awake in bed; son present at bedside; pt reports bm; lg loose brown bm noted per engineering technical writer; pericare with catheter care administered; abd folds washed as well; repositioned; afib on monitor; galicia to gravity; o2 per nc; call light within reach; will continue to monitor
--- NOTE | 2019-09-08 15:58 | NUR ---
awake in bed; placed on bedpan as per request; iv intact; no redness or edema noted at site; afib/pvc on monitor; galicia to gravity; o2 per nc; call light within reach; will continue to monitor
--- NOTE | 2019-09-08 18:12 | NUR ---
awake in bed; pericare per staff for incont of lg loose brown bm; catheter care; iv intact; dressing cdi to central line; afib/pvc on monitor; galicia to gravity; o2 per nc; assist with self repositioning; call light within reach
--- NOTE | 2019-09-08 18:45 | NUR ---
REPORT FROM Bertha KING RN. ASSUMED PT. CARE.
--- NOTE | 2019-09-08 19:35 | NUR ---
PT. FOUND RESTING WITH EYES CLOSED IN NO DISTRESS. RESPS EVEN, UNLABORED. FINGER TIPS CYANOTIC. PT. WITH NASAL CANNULA ON HIS FOREHEAD. SPO2 IS FOUND TO BE 68% ON R/A. PLACED BACK ON THE O2 CANNULA. SPO2 IMMEDIATELY INCREASED TO 88-92%. ENCOURAGED TO KEEP OXYGEN IN PLACE. PT. REES. DENIES COPMLAINTS OTHER THAN HIS BUTTOCKS HURTING FROM SITTING. PT. ABDOMEN DISTENDED, BUT DENIES PAIN UPON PALPATION. YANN WRAPS NOTED TO LOWER EXT BILATERALLY. 3+ LOWER EXT EDEMA. DISTIL PULSES OBTAINED VIA DOPPLER, UNABLE TO PALPATE. RADIAL PULSES INTACT. LUNGS CLEAR TO UPPERS BILAT. LOWER LUNG MELARA DIMINISHED BILAT. HR IRREGULAR. A-FIB IN THE 80'S. CALL LIGHT WITHIN REACH. WILL CONTINUE TO MONITOR.
--- NOTE | 2019-09-08 20:23 | NUR ---
PT. RESTING IN BED WITH EYES CLOSED. RESPS EVEN, UNLABORED. SKIN WARM AND DRY. SPO2 IS 90% ON 4L NC.
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
--- NOTE | 2019-09-08 22:05 | NUR ---
PT. NASAL CANNULA PLACED BACK IN HIS NARES HE CONTINUES TO PUT IT ON HIS FOREHEAD. PT. INFORMED THAT IF HE IS REFUSING TO WEAR THE BIPAP HE AT LEAST NEEDS TO WEAR THE NASAL CANNULA.
--- NOTE | 2019-09-08 23:35 | NUR ---
PT. CONTINUES TO PULL NASAL CANNULA OUT OF HIS NOSE. ENCOURAGED TO KEEP THE CANNULA IN PLACE.
[2019-09-09] VITALS (12 sets, daily range): BP systolic 100–113; BP diastolic 56–66
--- NOTE | 2019-09-09 00:20 | NUR ---
PT. MOUTH BREATHING AND EVEN WHEN KEEPING NASAL CANNULA IN PLACE HIS O2 LEVELS ATE IN THE 70'S. RT. CALLED TO PLACE PATIENT ON VENTI-MASK.
--- NOTE | 2019-09-09 02:11 | NUR ---
PT. CONTINUES TO REMOVE VENTI-MASK REFUSING TO LEAVE IN PLACE. WILL CONTINUE TO REPLACE MASK NEEDED.
--- NOTE | 2019-09-09 02:54 | NUR ---
PT. CONTINUES TO REMOVE VENTI-MASK REPEATEDLY.
--- NOTE | 2019-09-09 03:15 | NUR ---
ATTEMPTS TO KEEP VENTI-MASK IN PLACE REMAIN FUTILE. PT. CHANGED BACK TO NASAL CANNULA. HIS SPO2 IS IN THE LOW 80'S WITH NASAL CANNULA, HE CONTINUES TO REFUSE BIPAP.
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
--- NOTE | 2019-09-09 06:33 | NUR ---
PT. INITIALLY REFUSED MEDICATION. AWAKE, AND ORIENTED X 3, THEN STATED HE WOULD TAKE THE 0600 THYROID PILL. ONCE GIVEN, THE PATIENT THEN SPIT IT OUT ON THE FLOOR. SMELL OF BM NOTED. PT. TURNED, BUT NO BM AT THIS TIME. PT. REMAINS UNCOOPERATIVE WITH ALL ATTEMPTS AT CARE.
--- NOTE | 2019-09-09 07:47 | NUR ---
PT AWOKE FOR ASSESSMENT THEN WENT BACK TO SLEEP. BREAKFAST TRAY PLACED ON BEDSIDE TABLE. PTS O2 IN 70'S WHILE ASLEEP BUT DOES NOT WANT TO WEAR BIPAP. O2 75% ON 2L NC, TURNED ON WHILE PT SLEEPING. BREATHING EVEN/UNLABORED, GOOD PLEATH.
--- NOTE | 2019-09-09 08:29 | NUR ---
PHYSICAL THERAPY @BEDSIDE WITH PT. GOT PT UP TO SIDE OF BED.
--- NOTE | 2019-09-09 09:02 | NUR ---
DR RUIZ @BEDSIDE WITH PT, ASSESSING & DISCUSSING POC/ DC TO REHAB.
--- NOTE | 2019-09-09 09:03 | NUR ---
DICUSSING REHAB WITH TAMMY OLSON
--- NOTE | 2019-09-09 09:26 | NUR ---
PT MEDICATED W/OUT INCIDENT. WANTS TO SLEEP AGAIN
[2019-09-09 10:16] LABS: BUN 32 mg/dL (8-23); BUN/CREATININE RATIO 28 (12-20 (CALC)); CHLORIDE 79 mmol/l (95-108); CREATININE 1.1 mg/dL (0.7-1.3); GFR > 60 ML/MIN (>=60 (CALC)); GFR FOR AFR.AMER. > 60 ML/MIN (>=60 (CALC)); POTASSIUM 3.5 mmol/l (3.5-5.1); SODIUM 133 mmol/l (137-146)
[2019-09-09 10:23] LABS: ANION GAP 11 (6-22 (CALC))
[2019-09-09 10:30] LABS: CARBON DIOXIDE 47 mmol/l (22-30)
--- NOTE | 2019-09-09 16:46 | NUR ---
PT ASKING FOR PAIN MEDS. CALLED DIETARY FOR ENSURE R/T PT NO EATING TODAY.
--- NOTE | 2019-09-09 16:57 | NUR ---
PTS DAUGHTER CAME OUT TO INFORM NURSES THAT PT NEEDED PAIN MEDS. ARRIVED WITH PAIN MEDS TO ROOM, PT DENIED PAIN. DENIED PAIN MEDICINE. MEDICINE RETURNED TO PSYCHIATRIC.
--- NOTE | 2019-09-09 18:04 | NUR ---
PT WOKEN UP, SON @BEDSIDE. PT REPOSITIONED IN BED, SITTING UP, EATING DINNER, TALKING TO SON.
--- NOTE | 2019-09-09 18:45 | NUR ---
REPORT FROM Claudia WHEATLEY RN. ASSUMED PT. CARE.
--- NOTE | 2019-09-09 19:10 | NUR ---
PT. FOUND SITTING UP IN BED, AWAKE, ALERT, ORIENTED X 3. SKIN WARM AND DRY. REES, BUT WEAKER LOWER EXTREMITIES. DISTIL PULSES OBTAINED VIA DOPPER. SWELLING IMPROVED, YANN WRAPS REMAIN IN PLACE. WILL CHANGE YANN WRAPS AND CLEANSE PATIENT HE IS FOUND TO BE INCONTINENT OF STOOL. RESPS EVEN AND UNLABORED. DIMINISHED BASES, CLEAR UPPERS BILATERALLY. PT. ONLY COMPLAINTS IS BUTTOCK PAIN. TURNED TO LT. SIDE AT THIS TIME. RADIAL PULSES INTACT. PT. MORE COOPERATIVE TONIGHT AT THIS TIME. SOP2 IS 90% ON 4L NC. WILL CONTINUE TO CLOSELY MONITOR.
--- NOTE | 2019-09-09 20:50 | NUR ---
PT. MEDICATED PER PHYSICIAN ORDERS. COOPERATIVE WITH CAR AT THIS TIME. RESPS REMAIN EVEN AND UNLABORED. SPO2 IS 89% ON 4L NC. CALL LIGHT WITHIN REACH. WILL CONTINUE TO ASSESS.
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
--- NOTE | 2019-09-09 22:43 | NUR ---
PT. RESTING IN BED WITH EYES CLOSED IN NO DISTRESS. RESPS EVEN, SHALLOW, UNLABORED. SPO2 IS 90% ON 4L NC. VOICES NO COMPLAINTS OR NEEDS. WILL CONTINUE TO CLOSELY MONITOR.
[2019-09-10] VITALS (10 sets, daily range): BP systolic 95–124; BP diastolic 53–71
--- NOTE | 2019-09-10 00:45 | NUR ---
PT. CONTINUES TO REST WITH EYES CLOSED IN NO DISTRESS. SPO2 IS 88-91% ON 4L NC. REMAINS EASILY AROUSABLE TO LIGHT VERBAL STIMULI. AFEBRILE. PT. VOICES NO COMPLAINTS OR NEEDS.
--- NOTE | 2019-09-10 02:40 | NUR ---
NASAL CANNULA FOUND PARTIALLY REMOVED FROM NARES, REPLACED AT THIS TIME. PT. VOICES NO OTHER COMPLAINTS OR NEEDS. CALL LIGHT REMAINS WITHIN REACH. WILL CONTINUE TO MONITOR.
--- NOTE | 2019-09-10 04:20 | NUR ---
PT. RESTING IN BED WITH EYES CLOSED. NASAL CANNULA REMAINS IN PLACE. RESPS REMAIN EVEN, SHALLOW, UNLABORED. PT. REMAINS IN A-FIB WITH RATE IN THE 80'S. BP/HR STABLE. CALL LIGHT REMAINS WITHIN REACH. WILL CONTINUE TO MONITOR.
[2019-09-10 04:58] LABS: HEMATOCRIT 46.6 % (39.0-50.0); HEMOGLOBIN 14.1 g/dl (14.0-18.0); MEAN CELL VOLUME 94.9 fL CALC (80.0-100.0); MEAN CORPUSCULAR HGB 28.7 pG CALC (26.0-32.0); MEAN CORPUSCULAR HGB CONC 30.3 g/L CALC (32.0-36.0); RED BLOOD COUNT 4.91 mill/uL (4.70-6.10); RED CELL DISTRI WIDTH 15.8 % (11.5-15.5)
[2019-09-10 05:21] LABS: BUN 38 mg/dL (8-23); BUN/CREATININE RATIO 30 (12-20 (CALC)); CHLORIDE 78 mmol/l (95-108); CREATININE 1.3 mg/dL (0.7-1.3); GFR 53 ML/MIN (>=60 (CALC)); GFR FOR AFR.AMER. > 60 ML/MIN (>=60 (CALC)); MAGNESIUM 2.1 mg/dL (1.6-2.3); POTASSIUM 3.3 mmol/l (3.5-5.1); SODIUM 135 mmol/l (137-146)
[2019-09-10 05:27] LABS: ANION GAP 12 (6-22 (CALC))
[2019-09-10 05:45] LABS: CARBON DIOXIDE 48 mmol/l (22-30)
--- NOTE | 2019-09-10 06:15 | NUR ---
PT. REMAINS EASILY AROUSABLE TO LIGHT VERBAL STIMULI. UPON AWAKENING, PT. REPEATS HIS NAME, , LOCATION AND DATE. AGREEABLE TO TAKING LEVOTHYROXINE THIS AM. CALL LIGHT REMAINS WITHIN REACH. LIGHTS DIMMED FOR COMFORT.
--- NOTE | 2019-09-10 07:42 | NUR ---
PT WOKEN UP, ADJUSTED UP IN BED, EATING BREAKFAST.
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
--- NOTE | 2019-09-10 11:30 | NUR ---
PT SITTING UP IN BED, EATING LUNCH. SON @BEDSIDE UPDATED ON AM STATUS. PT STATUS UNABLE TO MOVE HIS LEGS SO THIS RN READJUSTED HIS LEGS FOR COMFORT. THEN PT C/O BUTTOCKS UNCOMFORTABLE & READJUSTED HIS ENTIRE BODY FOR COMFORT. WILL CONTINUE TO MONITOR.
--- NOTE | 2019-09-10 13:08 | NUR ---
RECEIVED REPORT FROM OFF GOING NURSE, PT RESTING WITH EYES CLOSED, EASILY AROUSED, NO DISTRESS.
[2019-09-10] MEDS ORDERED: LISINOPRIL2.5 MG PO (13:32)
--- NOTE | 2019-09-10 14:56 | NUR ---
URINE SAMPLE OBTAINED AND SENT TO LAB; RIGHT FEMORAL LINE TRIPLE LUMEN CATH FLUSHED EASILY WITH GOOD BLOOD RETURN ON ALL LUMENS.
[2019-09-10 14:59] LABS: URINE BILIRUBIN - DIPSTICK NEGATIVE (NEGATIVE); URINE BLOOD DIPSTICK LARGE (NEGATIVE); URINE GLUCOSE - DIPSTICK NEGATIVE (NEGATIVE); URINE KETONE NEGATIVE (NEGATIVE); URINE LEUK ESTERASE TRACE (NEGATIVE); URINE NITRITE - DIPSTICK NEGATIVE (Negative); URINE PH 7.5 (4.5-8.0); URINE PROTEIN - DIPSTICK NEGATIVE (NEG-TRACE)
[2019-09-10 15:24] LABS: URINE COLOR PINK; URINE RBC 50-100 RBC/hpf (0-5); URINE WBC 0-2 WBC/hpf (0-5)
[2019-09-10 15:25] LABS: URINE EPITHELIAL CELLS FEW EPI/hpf (0-FEW)
--- NOTE | 2019-09-10 16:37 | NUR ---
REPORT GIVEN TO SOFIA Driver RN AT [facility], , PLANED TRANSPORT FIREFIGHTER TIME IS 1800
--- NOTE | 2019-09-10 18:41 | NUR ---
PT HAS LEFT WITH [facility], [facility], FOR TRANSPORT TO [facility]. PT STABLE, NO DISTRESS.
--- NOTE | 2019-09-11 09:59 | NUR ---
09/10/19 The patient is seen for supine to sit and sit to stand transfers. He deminstrated increased confusion and feeling of malaise in the AM treatment possible related to pH Am Pac score is unchanged and I believe he would do well in ECF] Max assist is required fro transfers and bed mobitlity
== END 2019-09-10 18:41 | DRG 291 ==
LOC: ED 11:15 → ED-I 22:02 → ED 22:21 → ICU 22:22
PROVIDERS: Family Medicine; Internal Medicine; Nurse Practitioner Family; ADMIT Internal Medicine; ATTEND Internal Medicine
PROC: 0T9B70Z Drainage of Bladder with Drainage Device, Via Natural or Artificial Opening (ICD-10-PCS; principal; 2019-09-03)
PROC: 06HY33Z Insertion of Infusion Device into Lower Vein, Percutaneous Approach (ICD-10-PCS; 2019-09-03)
PROC: 5A09357 Assistance with Respiratory Ventilation, Less than 24 Consecutive Hours, Continuous Positive Airway Pressure (ICD-10-PCS; 2019-09-03)
DX: I11.0 Hypertensive heart disease with heart failure (principal); J96.22 Acute and chronic respiratory failure with hypercapnia; J96.21 Acute and chronic respiratory failure with hypoxia; Z68.43 Body mass index [BMI] 50.0-59.9, adult; E66.2 Morbid (severe) obesity with alveolar hypoventilation; I48.20 Chronic atrial fibrillation, unspecified; L03.116 Cellulitis of left lower limb; L03.115 Cellulitis of right lower limb; E87.3 Alkalosis; E87.6 Hypokalemia; T50.2X5A Adverse effect of carbonic-anhydrase inhibitors, benzothiadiazides and other diuretics, initial encounter; I50.43 Acute on chronic combined systolic (congestive) and diastolic (congestive) heart failure; E11.51 Type 2 diabetes mellitus with diabetic peripheral angiopathy without gangrene; E03.9 Hypothyroidism, unspecified; K75.81 Nonalcoholic steatohepatitis (NASH); T44.7X6A Underdosing of beta-adrenoreceptor antagonists, initial encounter; T50.1X6A Underdosing of loop [high-ceiling] diuretics, initial encounter; Z91.128 Patient's intentional underdosing of medication regimen for other reason; Z87.891 Personal history of nicotine dependence; Z91.19 Patient's noncompliance with other medical treatment and regimen
CPT/HCPCS: J1644; J1650